=== PATIENT | female | born 2000 | race African-American/Black ===

== ENCOUNTER 2023-10-24 14:32 | Emergency (ER) | payer OTHER ==
[~2023-10-24] VITALS: Ht 170.2 cm; Wt 54.0 kg
[2023-10-24 14:38] VITALS: BP 122/82; PULSE 76; RESP 20; TEMP 98.2; O2SAT 100
[2023-10-24 15:22] LABS: CLARITY URINE CLEAR (CLEAR); COLOR URINE DARK YELLOW (YELLOW); GLUCOSE URINE NEGATIVE (NEGATIVE); KETONES URINE 2+ (NEGATIVE); LEUKOCYTE ESTERASE URINE NEGATIVE (NEGATIVE); NITRITE URINE NEGATIVE (NEGATIVE); OCCULT BLOOD URINE NEGATIVE (NEGATIVE); PROTEIN URINE TRACE (NEGATIVE)
[2023-10-24 15:48] LABS: BACTERIA URINE 1+; MUCUS URINE 2+ /lpf (< = 2+); RBC URINE 0-2 /hpf (0-2); SQUAMOUS EPITHELIAL CELL URINE 1+ /lpf (RARE/1+); WBC URINE 0-2 /hpf (0-2)
[2023-10-24 16:57] LABS: BASOPHILS % 0.5 % (0.0-2.0); EOSINOPHILS % 1.4 % (0.0-5.0); HEMOGLOBIN. 12.8 g/dL (12.0-16.0); LYMPHOCYTES % 28.2 % (20.0-50.0); MEAN CORPUSCULAR HGB CONC 31.9 g/dL (31.0-37.0); MEAN PLATELET VOLUME 8.8 fl (7.4-10.4); MONOCYTES % 5.9 % (2.0-8.0); PLATELET 209 x1000/uL (130-400); WHITE BLOOD COUNT 6.4 x1000/uL (4.5-11.0)
[2023-10-24 17:01] LABS: ADD RBC MORPHOLOGY YES; DIFFERENTIAL COMMENT 1
[2023-10-24 17:08] LABS: D-DIMER < 0.19 mg/L FEU (<0.50); PROTHROMBIN TIME 11.4 sec (9.6-11.0)
[2023-10-24 17:11] LABS: HCG SCREEN NEGATIVE
[2023-10-24 17:14] LABS: ALANINE AMINOTRANSFERASE 9 IU/L (10-49); ALBUMIN 5.2 g/dL (3.2-4.8); ASPARTATE AMINOTRANSFERASE 18 IU/L (<34); BILIRUBIN TOTAL 0.9 mg/dL (0.1-1.0); CALCIUM 10.1 mg/dL (8.7-10.4); CARBON DIOXIDE 23 mEq/L (21-32); CHLORIDE 104 mEq/L (98-107); CREATININE 0.8 mg/dL (0.6-1.0); GLUCOSE 93 mg/dL (70-105); SODIUM 137 mEq/L (136-145); UREA NITROGEN BLOOD 10 mg/dL (9-23)
[2023-10-24 17:17] LABS: TROPONIN I HIGH SENSITIVITY < 4 ng/L (3.0-34)
[2023-10-24 17:18] LABS: PLATELET ESTIMATE NORMAL
[2023-10-24 17:19] LABS: HYPOCHROMASIA 1+; MICROCYTOSIS 3+
== END 2023-10-24 18:52 | disposition home or self-care (01) ==
LOC: ER 15:03
DX: R06.02 Shortness of breath (principal); Z98.890 Other specified postprocedural states
CPT/HCPCS: 36415; 71045; 80053; 81003; 81025; 84484; 84703; 85025; 85379; 93005; 99285